=== PATIENT | male | born 1940 | race Two or more races ===

== ENCOUNTER 2019-01-07 08:08 | Day surgery (SDC) | payer OTHER ==
[~2019-01-07 08:08] MED LIST: ATORVAST PO; BENADRYL25 MG PO; GLIMEPIRIDE4 MG PO; KOMBIGLYZE XR1 EAC2 PO; LIPITOR40 MG PO; LISINOPR PO; MEDROL4 MG PO; SYNTHROID100 MCG PO; XIGDUO XR 5 MG1 EAC1 PO
[2019-01-07] MEDS ORDERED: PERCOCET 5-3251 EACH PO (12:25)
[2019-01-07] MEDS ORDERED: RECTICARE30 GM TOP (12:26)
== END 2019-01-07 15:44 | disposition home or self-care (01) ==
LOC: CIR.AMB 08:08
DX: C20 Malignant neoplasm of rectum (principal)

== ENCOUNTER → 2019-02-06 | Outpatient (CLI) | payer OTHER ==
[~2019-02-06] MED LIST changes: +PERCOCET 5-3251 EACH PO; +RECTICARE30 GM TOP
== END | disposition home or self-care (01) ==
LOC: NUCLEAR 07:00
DX: D12.8 Benign neoplasm of rectum (principal); D37.5 Neoplasm of uncertain behavior of rectum; C20 Malignant neoplasm of rectum; R19.5 Other fecal abnormalities
CPT/HCPCS: 78816; A9552

== ENCOUNTER 2020-03-03 10:19 | Day surgery (SDC) | payer OTHER | END 2020-03-03 14:10 | disposition home or self-care (01) | LOC: AMB-ENDOS 10:19 | PROVIDERS: ATTEND Surgery | DX: C20 Malignant neoplasm of rectum (principal) ==

== ENCOUNTER 2020-04-08 09:37 | Outpatient (CLI) | payer OTHER ==
[2020-05-14] MEDS ORDERED: JARDIANCE10 MG PO (11:03)
[2020-05-14] MEDS ORDERED: JANUMET XR 50-1 EAC1 PO (11:03)
== END 2020-04-08 13:26 | disposition home or self-care (01) ==
LOC: NUCLEAR 09:37
PROVIDERS: ATTEND Surgery
DX: C20 Malignant neoplasm of rectum (principal); D12.8 Benign neoplasm of rectum; D37.5 Neoplasm of uncertain behavior of rectum; R19.5 Other fecal abnormalities
CPT/HCPCS: 78816; A9552

== ENCOUNTER 2020-09-17 07:36 | Day surgery (SDC) | payer OTHER ==
[~2020-09-17 07:36] MED LIST changes: +HYOSCYAMINE0.125 M1 SL; +JANUMET XR 50-1 EAC1 PO; +JARDIANCE10 MG PO; +LISINOPRIL-HCT1 EAC1; +OXYC1TAB9 PO; +VITAMIN D3125 MC1
[2020-09-17] MEDS ORDERED: MIRALAX17 GM PO (09:53)
[2020-09-17] MEDS ORDERED: ULTRACET PO (09:53)
== END 2020-09-17 13:00 | disposition home or self-care (01) ==
LOC: CIR.AMB 07:36
PROVIDERS: ATTEND Surgery
DX: C20 Malignant neoplasm of rectum (principal); Z20.828 Contact with and (suspected) exposure to other viral communicable diseases
CPT/HCPCS: 36561; C1751

== ENCOUNTER 2021-01-22 09:20 | Outpatient (CLI) | payer OTHER ==
[~2021-01-22 09:20] MED LIST changes: +MIRALAX17 GM PO; +ULTRACET PO
== END 2021-01-22 09:22 | disposition home or self-care (01) ==
LOC: LAB 09:20
PROVIDERS: ATTEND Radiology Diagnostic Radiology
DX: N20.0 Calculus of kidney (principal)

== ENCOUNTER 2021-01-22 10:39 | Outpatient (CLI) | payer OTHER | END 2021-01-22 10:43 | disposition home or self-care (01) | LOC: MRI 10:39 | DX: C18.9 Malignant neoplasm of colon, unspecified (principal) | CPT/HCPCS: 72197; A9575 ==

== ENCOUNTER 2021-05-11 06:14 | Day surgery (SDC) | payer OTHER | END 2021-05-11 12:15 | disposition home or self-care (01) | LOC: AMB-ENDOS 06:14 | PROVIDERS: ATTEND Surgery | DX: K62.89 Other specified diseases of anus and rectum (principal); Z20.822 Contact with and (suspected) exposure to COVID-19 ==

== ENCOUNTER 2021-07-19 08:00 | Inpatient (IN) | payer OTHER ==
[2021-07-23] MEDS ORDERED: TYLENOL ARTHRI650 MG PO (07:24)
[2021-07-23] MEDS ORDERED: MIRALAX17 GM PO (07:24)
[2021-07-23] MEDS ORDERED: ULTRAM50 MG PO (07:24)
== END 2021-07-23 14:39 | disposition home or self-care (01) | DRG 330 ==
LOC: SURH 07-22 07:00 → O/R 07-22 07:15 → SURH 07-22 08:00
PROVIDERS: Surgery; ADMIT Surgery; ATTEND Surgery
PROC: 0D1E0Z4 Bypass Large Intestine to Cutaneous, Open Approach (ICD-10-PCS; 2021-07-22)
PROC: 0WQF0ZZ Repair Abdominal Wall, Open Approach (ICD-10-PCS; 2021-07-22)
PROC: 0DQN0ZZ Repair Sigmoid Colon, Open Approach (ICD-10-PCS; principal; 2021-07-22 07:00)
PROC: 0DTE0ZZ Resection of Large Intestine, Open Approach (ICD-10-PCS; 2021-07-22 07:00)
DX: K94.09 Other complications of colostomy (principal); K43.0 Incisional hernia with obstruction, without gangrene; K42.0 Umbilical hernia with obstruction, without gangrene; Z20.822 Contact with and (suspected) exposure to COVID-19

== ENCOUNTER 2023-02-27 05:20 | Day surgery (SDC) | payer OTHER ==
[~2023-02-27] VITALS: Ht 182.9 cm; Wt 97.1 kg
[~2023-02-27 05:20] MED LIST changes: +TYLENOL ARTHRI650 MG PO; +ULTRAM50 MG PO
[2023-02-27] MEDS ORDERED: TRAM1TAB98 PO (07:57)
== END 2023-02-27 10:50 | disposition home or self-care (01) ==
LOC: CIR.AMB 05:20
PROVIDERS: ATTEND Surgery
DX: C20 Malignant neoplasm of rectum (principal); R19.5 Other fecal abnormalities; I10 Essential (primary) hypertension; Z20.822 Contact with and (suspected) exposure to COVID-19